=== PATIENT | male | born 1990 | race American Indian/Alaskan Native ===

== ENCOUNTER 2017-01-31 19:08 | Emergency (ER) | payer OTHER ==
--- NOTE | 2017-01-31 21:16 | XRay Report ---
FINAL REPORT EXAM: XR FOOT 2V LT HISTORY: pain in the left foot TECHNIQUE: AP and lateral views of the left foot PRIORS: None. FINDINGS: There is no evidence for acute fracture or dislocation. No soft tissue swelling or radiopaque foreign bodies are seen. Bony mineralization is normal. Joint spaces are maintained. IMPRESSION: No acute soft tissue or bony abnormality noted.
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
[2017-01-31] MEDS ORDERED: PERCOCET 5/325 PO ONE (22:52)
[2017-01-31] MEDS ORDERED: MOTRIN PO ONE (22:52)
[2017-02-01 04:45] VITALS: BP 120/62
== END 2017-02-01 00:18 | disposition home or self-care (01) ==
LOC: ED 19:08
DX: S90.32XA Contusion of left foot, initial encounter (principal); J45.909 Unspecified asthma, uncomplicated; F17.200 Nicotine dependence, unspecified, uncomplicated; W01.0XXA Fall on same level from slipping, tripping and stumbling without subsequent striking against object, initial encounter; Y93.9 Activity, unspecified; Y99.9 Unspecified external cause status; Y92.410 Unspecified street and highway as the place of occurrence of the external cause
CPT/HCPCS: 99284